=== PATIENT | female | born 1985 | race Caucasian/White ===

== ENCOUNTER 2018-10-29 07:52 | Day surgery (SDC) | payer OTHER ==
[~2018-10-29] VITALS: Ht 160 cm; Wt 83.5 kg
[~2018-10-29 07:52] MED LIST: CLIN150C14 PO; LIDOCAINE 1% MDV 20ML VIAL SQ PRN; LR 1,000 ML IV ONE; PROP60CA PO; dexameTHASONE 4 MG/ML 1ML VIAL (J1100) IV ONE
[2018-10-29] MEDS ORDERED: LIDOCAINE 2% INJ 100 MG/5 ML SDV (FOR ANES.) As Ordered ONE (08:08)
[2018-10-29] MEDS ORDERED: ROCURONIUM BROMIDE 50 MG/5 ML VIAL As Ordered ONE (08:08)
[2018-10-29] MEDS ORDERED: dexameTHASONE 4 MG/ML 1ML VIAL (J1100) As Ordered ONE (08:08)
[2018-10-29] MEDS ORDERED: fentaNYL 100 MCG/2 ML INJECTION (J3010) As Ordered ONE (08:08)
[2018-10-29] MEDS ORDERED: MIDAZOLAM INJ 2 MG/2 ML VIAL (J2250) As Ordered ONE (08:08)
[2018-10-29] MEDS ORDERED: PROPOFOL 200 MG/20 ML VIAL As Ordered ONE (08:08)
[2018-10-29] MEDS ORDERED: ONDANSETRON 4MG/2ML VIAL (J2405) As Ordered ONE (08:08)
[2018-10-29] MEDS ORDERED: KETOROLAC 60 MG/2 ML VIAL (J1885) As Ordered ONE (08:16)
[2018-10-29] MEDS ORDERED: CLINDAMYCIN 900 MG in APPROPRIATE DILUENT 1 EA IV ONE (08:30)
[2018-10-29] MEDS ORDERED: IBUP200T45 PO (08:35)
[2018-10-29 08:36] LABS: URINE PREG TEST NEGATIVE (NEGATIVE)
[2018-10-29] MEDS ORDERED: LIDOCAINE 2% W/ EPINEPHRINE 1.7 ML DENTAL INJ As Ordered ONE (09:18)
[2018-10-29] MEDS ORDERED: ePHEDrine SULFATE 25 MG/5 ML(5MG/ML) SYRINGE As Ordered ONE (09:38)
[2018-10-29] MEDS ORDERED: ONDANSETRON 4MG/2ML VIAL (J2405) IV PRN (10:30)
[2018-10-29] MEDS ORDERED: LR 1,000 ML IV SCH (10:30)
[2018-10-29] MEDS ORDERED: fentaNYL 100 MCG/2 ML INJECTION (J3010) IV PRN (10:30)
[2018-10-29] MEDS ORDERED: NORCO, ANEXSIA 5/325MG TABLET (HYDROcodone/ACETAMINOPHEN) PO PRN (10:45)
[2018-10-29 12:45] VITALS: BP 134/86
--- NOTE | 2018-10-29 14:56 | RO ---
DATE OF PROCEDURE: 10/29/2018 PREOPERATIVE DIAGNOSIS: Grossly decayed and hopeless and symptomatic teeth number 3, 4, 5, 6, 7, 8, 9, 10, 11, 12, 13, 18, 21, 27, and 31. POSTOPERATIVE DIAGNOSIS: Status post grossly decayed and hopeless and symptomatic teeth number 3, 4, 5, 6, 7, 8, 9, 10, 11, 12, 13, 18, 21, 27, and 31. PROCEDURE PERFORMED: Extraction of the aforementioned teeth and alveoloplasty upper right and upper left quadrants. ANESTHESIA USED: General endotracheal anesthesia via nasal ray. SPECIMEN: Teeth for gross only. INDICATIONS FOR SURGERY: Remedios is a pleasant 33-year-old female who was referred to me for extraction of teeth.3, 4, 5, 6, 7, 8, 9, 10, 11, 12, 13, 18, and 31. She reports a lot of daily pain stemming from these teeth. She also has a severe dental anxiety and desires to be put to sleep completely and fully. Preoperative discussion with the patient was made regarding intravenous (IV) sedation in the office versus general anesthesia in the operating room (OR), and I felt like she was best suited for general anesthesia in an operating room setting. All the risks, benefits, and alternatives were explained to the patient. Complete history and physical and informed consent were signed and are in the patient's chart. DESCRIPTION OF PROCEDURE: On 10/24/2018, the patient presented to preoperative holding area. Informed consent and the history and physical (H and P) were updated. She also would like to have teeth number 21 and 27 removed in addition to the other teeth. She reports that these teeth are hurting her and are painful every day, and she does not desire to have them saved. Therefore, she does want them removed today. We added those two teeth to the consent today, and that new consent was signed by me and her. At this point, the patient was then taken back to the operating room. She was laid supine on the operating room table. Ulnar nerve protectors were placed. Noninvasive cardiac monitors were applied. At that point, the patient underwent general anesthesia and was intubated with a nasal ray, which was then secured to the patient's forehead. At this point, she was prepped and draped in the usual sterile fashion. A time-out procedure was performed to identify the patient, the procedure, and any other precautions. Preoperative antibiotics were administered. A moist throat pack was inserted in the patient's oropharynx, followed by the administration of 2% lidocaine with 1:100,000 epinephrine as multiple infiltrations and blocks around the teeth. At this point, a full-thickness flap was released around teeth number 3, 4, 5, 6, 7, 8, 9, 10, 11, 12, 13 with an anterior and a posterior release incisions. Facial cortex was undermined and removed by making a buccal trough with a Surgitome around teeth number 3, 4, 5, 6, 7, 8, 9, 10, 11,12, 13; and at this point, straight elevators and forceps were then used to remove those teeth, namely teeth number 3, 4, 5, 6, 7, 8, 9, 10, 11, 12, 13. All those sockets were curetted and irrigated. No sinus exposure was noted. Alveoloplasty with a rongeur was performed in the upper left and upper right quadrant down to a smooth finish to remove all the undercuts and the prominent canine eminence. 3-0 chromic sutures were then used to close the flap in an interrupted and continuous fashion. Attention was then given teeth number 18, 31, 21, and 27, for which a full-thickness flap was released in each indicated tooth area. A small amount of buccal bone was then removed, and elevators and forceps were then used to luxate, subluxate, and deliver the teeth, namely teeth number 18, 21, 27, and 32. All the sockets were curetted and irrigated. Flaps were then closed with 3-0 chromic sutures. At this point, once all the teeth were removed, the oral cavity was irrigated and suctioned. The throat pack was removed. The patient was then taken back to the postanesthesia care unit (PACU) once she was extubated without any incident. ESTIMATED BLOOD LOSS: 15 mL. DRAINS: There were no drains placed. COMPLICATIONS: There were no complications to mention at the time of surgery.
--- NOTE | 2018-10-31 00:37 | ECGEPIP ---
Stationary ECG Study [facility] Test Date: 2018-10-29 Pat Name: GELY WELSH Department: Room: - Gender: F Pet Handler: CHADD : [id number] Requested By: Faizan Izaguirre Order Number: [id number] Reading MD: Gatito Hernandez Measurements Intervals [place] Rate: 70 P: 41 CO: 150 QRS: 55 QRSD: 108 T: 57 QT: 369 QTc: 399 Interpretive Statements SINUS RHYTHM NO PRIOR TRACING Electronically Signed On 10-31-2018 0:37:08 EDT by Gatito Hernandez
== END 2018-10-29 12:54 | disposition home or self-care (01) ==
LOC: M SDC 07:52
PROVIDERS: ATTEND Dentist
DX: K02.9 Dental caries, unspecified (principal); I10 Essential (primary) hypertension; F41.9 Anxiety disorder, unspecified; F17.210 Nicotine dependence, cigarettes, uncomplicated; F32.9 Major depressive disorder, single episode, unspecified; G43.909 Migraine, unspecified, not intractable, without status migrainosus; Z88.0 Allergy status to penicillin; Z79.899 Other long term (current) drug therapy; Z88.8 Allergy status to other drugs, medicaments and biological substances
CPT/HCPCS: 84703; 88300; 93005; D7210; D7310; D9223; J1100; J1885; J2250; J2405; J3010